=== PATIENT | female | born 1985 | race Two or more races ===

== ENCOUNTER → 2017-02-12 | Outpatient (REF) | payer OTHER | LOC: M SFHCWAGY 14:22 | PROVIDERS: ATTEND Nurse Practitioner Women's Health | DX: Z12.4 Encounter for screening for malignant neoplasm of cervix (principal); R87.610 Atypical squamous cells of undetermined significance on cytologic smear of cervix (ASC-US) ==

== ENCOUNTER → 2017-02-21 | Outpatient (REF) | payer OTHER | LOC: M SFHCWAGY 16:05 | PROVIDERS: ATTEND Nurse Practitioner Women's Health | DX: R87.613 High grade squamous intraepithelial lesion on cytologic smear of cervix (HGSIL) (principal); R87.810 Cervical high risk human papillomavirus (HPV) DNA test positive ==